=== PATIENT | female | born 1975 | race Caucasian/White ===

== ENCOUNTER 2022-04-27 06:01 | Day surgery (SDC) | payer BC, MEDICARE ==
[2022-04-27] MEDS ORDERED: Lactated Ringers 1,000 ML IV SCH (06:30)
[2022-04-27] MEDS ORDERED: DIPRIVAN 200 MG/20 ML IV ONE ×2 (07:43→08:00)
[2022-04-27] MEDS ORDERED: XYLOCAINE 2%/Epi 1:200000 20ML VIAL MPF ONE (07:43)
[2022-04-27] MEDS ORDERED: Xylocaine-Mpf 2% 5 Ml Vial ONE (07:44)
[2022-04-27] MEDS ORDERED: Versed 2 MG/2 ML Injection ONE (07:47)
[2022-04-27 08:51] VITALS: BP 139/92; PULSE 103; O2SAT 100
--- NOTE | 2022-04-27 09:51 | OP ---
SURGERY DATE/TIME: 04/27/2022 0748 PREOPERATIVE DIAGNOSIS: History of colon polyps and rectal bleeding. POSTOPERATIVE DIAGNOSIS: Small transverse colon polyp otherwise normal colon. PROCEDURE: Colonoscopy with cold forceps biopsy. SURGEON: Dr. Dank Moreau. ANESTHESIA: MAC. Medications given by anesthesia department. HISTORY: The patient is a 46-year-old white female who reports that 13 years ago she had a colonoscopy where multiple polyps were removed. At that time she had the procedure because she was having rectal bleeding and reports that she currently is having bleeding once again and has not had colonoscopy in the interval 13 years. The patient was felt the need to have a endoscopic evaluation. She was appraised of the risks of the procedure including the risk of perforation, phlebitis, untoward reaction to medication, bleeding and missed lesions. The patient verbalized her understanding and desired to have the procedure performed. DESCRIPTION OF PROCEDURE: The patient was given the medications by the anesthesia department. She had continuous pulse oximetry, ECG monitoring, intermittent blood pressure monitoring during the examination. She was placed in the left lateral decubitus position. A digital rectal examination was performed and revealed normal anal sphincter tone and no masses. The flexible Olympus pediatric colonoscope was used to intubate the rectum. A view of the colon was developed sequentially to the cecum including a short distance into the terminal ileum. Upon insertion and withdrawal, including a retroflex view in the rectum was noted one small polyp in the transverse colon which was destroyed using two passes of cold forceps biopsy. The scope was removed from the patient who tolerated the procedure well and was sent back to OP recovery in good condition. The prep was noted to be fair to good.
== END 2022-04-27 09:00 | disposition home or self-care (01) ==
LOC: SDC 06:01
PROVIDERS: ATTEND Family Medicine
DX: Z09 Encounter for follow-up examination after completed treatment for conditions other than malignant neoplasm (principal); Z86.010 Personal history of colon polyps; Z87.19 Personal history of other diseases of the digestive system; D12.3 Benign neoplasm of transverse colon
CPT/HCPCS: J2250; J2704

== ENCOUNTER 2022-05-27 16:59 | Emergency (ER) | payer BC, MEDICARE ==
[2022-05-27 19:11] LABS: Absolute Neutrophil Ct (ANC) 4.12 x10^3/uL (1.4-6.9); Basophil (Absolute #) 0.04 x10^3/uL (0-0.4); Eosinophil % 3.5 % (0.00-5.0); Eosinophil (Absolute #) 0.27 x10^3/uL (0-0.5); Hemoglobin 14.4 g/dL (12.0-16.0); Lymphocyte (Absolute #) 2.81 x10^3/uL (1.0-4.6); Lymphocytes % 36.8 % (24.0-44.0); Mean Cell Volume 97.1 fL (78-100); Mean Corpuscular Hemoglobin 31.8 pg (26-32); Mean Corpuscular Hgb Concent. 32.7 g/dL (32-36); Mean Platelet Volume 10.8 fL (7.5-11.0); Monocyte (Absolute #) 0.39 x10^3/uL (0.0-1.3); Monocytes % 5.1 % (0.0-12.0); Platelet Count 297 x10^3/uL (150-450); Red Blood Count 4.53 x10^6/uL (4.1-5.4); Red Cell Distribution Width 13.3 % (11.5-14.0); White Blood Count 7.6 x10^3/uL (4.0-10.5)
--- NOTE | 2022-05-27 19:14 | ERPHSYRPT ---
- History of Present Illness Source: patient, other () Exam Limitations: other (Poor historian) Patient Subjective Stated Complaint: C/O Headache, body aches, SOB. Patient has been struggling with this for months but it is much worse today. Triage Nursing Assessment: Patient does not appear SOB upon arrival. Skin tone normal. Alert and oriented. Patient with eyes closes through most of assessment but is answering questions appropriately when spoken to. Physician History: 46 yo wf w [facility] x 2wks(2months per nursing). Pt states that the pain is a 10 on scale, global, and sharp. She has had N/V and movement/palpation makes the pain worse. She denies focal weakness/trauma/cough/fever. Pt also complains of generalized abdominal pain/edema which she states is due to an adrenal tumor which Dr. Smith states is benign and nonoperable. Pt does have migraine headaches, but she states this pain is different. Timing/Duration: other (2wks to 2 months) Quality: sharpness Head Pain Location: global Severity of Pain-Max: severe Severity of Pain-Current: severe Recent Head Trauma: occasional headaches Modifying Factors: Improves With: movement Associated Symptoms: facial pain, nausea/vomiting, trouble walking, No confusion, No dizziness, No fatigue, No fever/chills, No flushing, No light- headedness, No loss of consciousness, No nasal congestion, No nasal drainage, No neck pain, No numbness in legs/feet, No rash, No sweating, No scotoma, No seizures, No sinus infection, No sensitive to light, No speech problems, No stiff neck, No vision changes, No visual disturbance, No weakness Previous symptoms: same symptoms as today Allergies/Adverse Reactions: tramadol Allergy (Mild, Verified 05/27/22 17:01) site injection reaction hydromorphone HCl [From Dilaudid (PF)] Adverse Reaction (Verified 05/27/22 17:01) lowers b/p Home Medications: Lamictal 200 mg PO BID 12/30/11 [History] Topamax 100 MG 150 mg PO BID 12/30/11 [History] Alprazolam [Xanax] 1 mg PO TID 05/18/22 [History] Hx Tetanus, Diphtheria Vaccination/Date Given: Yes Hx Influenza Vaccination/Date Given: No Hx Pneumococcal Vaccination/Date Given: No Immunizations Up to Date: Yes Travel Risk - International Travel Have you traveled outside of the country in past 3 weeks: No - Coronavirus Screening Are you exhibiting any of the following symptoms?: Yes Symptoms: Headaches/Body Aches/Fatigue Close contact with a COVID-19 positive Pt in past 14-21 Days: No - Vaccine Status Have you recieved a Covid-19 vaccination: No - Review of Systems Constitutional: No Symptoms, Fatigue, Malaise Eyes: No Symptoms Ears, Nose, & Throat: No Symptoms Respiratory: No Symptoms Cardiac: No Symptoms Abdominal/Gastrointestinal: No Symptoms, Abdominal Pain, Nausea, Vomiting Genitourinary Symptoms: No Symptoms Musculoskeletal: No Symptoms Skin: No Symptoms Neurological: No Symptoms, Headache Psychological: No Symptoms Endocrine: No Symptoms Hematologic/Lymphatic: No Symptoms Immunological/Allergic: No Symptoms - Past Medical History Pertinent Past Medical History: Yes Neurological History: Migraines Respiratory History: No Pertinent History Musculoskeletal History: Arthritis GI Medical History: GERD Psycho-Social History: Anxiety, Depression Other Medical History: chronic lyme disease, adrenal gland tumor - Past Surgical History Past Surgical History: Yes Gastrointestinal: Cholecystectomy Other Surgical History: spinal surgx3, wisdom teeth - Social History Smoking Status: Current every day smoker How long have you smoked: 25 YEARS Exposure to second hand smoke: No Drug Use: none Patient Lives Alone: No Significant Family History: no pertinent family hx - Female History Hx Now: No - Nursing Vital Signs Nursing Vital Signs: Initial Vital Signs Temperature 98 F 05/27/22 17:03 O2 Sat by Pulse Oximetry 99 05/27/22 17:03 Pain Scale Pain Intensity 8 Afebrile/Good sats - Physical Exam General Appearance: no apparent distress, alert Eye Exam: PERRL/EOMI, eyes nml inspection Ears, Nose, Throat Exam: normal ENT inspection, TMs normal, pharynx normal, moist mucous membranes Neck Exam: normal inspection, non-tender, supple, full range of motion, No meningismus, No mass, No Brudzinski, No Kernig's, No carotid bruit Respiratory Exam: normal breath sounds, lungs clear, airway intact Cardiovascular Exam: regular rate/rhythm, normal heart sounds, normal peripheral pulses, capillary refill <2 sec, No murmur Gastrointestinal/Abdominal Exam: soft, normal bowel sounds, tenderness (Diffuse TTP) Extremity Exam: normal inspection, normal range of motion Mental Status Exam: alert, oriented x 3, 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 Exam: normal hearing, normal speech, PERRL Motor/Sensory Exam: no motor deficit, no sensory deficit DTR Exam: bicep (R): 2+, bicep (L): 2+ Skin Exam: normal color, warm, dry, No rash Lymphatic Exam: No adenopathy SpO2 Interpretation: normal SpO2: 99 O2 Delivery: Room Air - Course Nursing assessment & vital signs reviewed: Yes EKG Interpreted by Me: RATE (EKG/Sinus tach/Prolonged QTc/Low voltage/Flat Twaves) - CT Exams Head CT Interpretation: Discussed w/radiologist (CT head L maxillary sinus disease/Nothing acute) Abdomen/Pelvis CT Interpretation: Discussed w/radiologist (CT [id number] HH/Small R adren al adenoma/Nothing acute) Ordered Tests: Active Orders 24 hr Category Date Time Status ABDOMEN AND PELVIS W/0 CONTRAS [CT] Stat Exams 05/27/22 19:08 Taken HEAD WITHOUT CONTRAST [CT] Stat Exams 05/27/22 19:39 Taken AMYLASE Stat Lab 05/27/22 19:08 Completed CBC W DIFF Stat Lab 05/27/22 19:08 Completed CMP Stat Lab 05/27/22 19:08 Completed LIPASE Stat Lab 05/27/22 19:08 Completed Lactic Acid Stat Lab 05/27/22 19:06 Completed TROPONIN Q4H Lab 05/27/22 19:08 Completed TROPONIN Q4H Lab 05/27/22 23:15 Ordered UA W/RFX CULTURE Stat Lab 05/27/22 20:11 Completed Medication Summary Discontinued Medications Generic Name Dose Route Start Last Admin Trade Name Matt PRN Reason Stop Dose Admin Morphine Sulfate 4 mg 05/27/22 20:51 05/27/22 21:01 Morphine Sulfate 4 Mg/Ml Injection IV 05/27/22 20:52 4 mg STAT ONE Administration Morphine Sulfate Confirm 05/27/22 20:59 Morphine Sulfate 4 Mg/Ml Injection Administered 05/27/22 21:00 Dose 4 mg .ROUTE .STK-MED ONE Morphine Sulfate 4 mg 05/27/22 21:43 05/27/22 21:46 Morphine Sulfate 4 Mg/Ml Injection IV 05/27/22 21:44 4 mg STAT ONE Administration Morphine Sulfate Confirm 05/27/22 21:45 Morphine Sulfate 4 Mg/Ml Injection Administered 05/27/22 21:46 Dose 4 mg .ROUTE .STK-MED ONE Prochlorperazine Edisylate 10 mg 05/27/22 20:51 05/27/22 21:02 Prochlorperazine Edisylate 10 Mg/2 Ml Vial IV 05/27/22 20:52 10 mg STAT ONE Administration Prochlorperazine Edisylate Confirm 05/27/22 20:59 Prochlorperazine Edisylate 10 Mg/2 Ml Vial Administered 05/27/22 21:00 Dose 10 mg .ROUTE .[facility] ONE Lab/Rad Data: Laboratory Result Diagrams 05/27/22 19:08 05/27/22 19:08 Laboratory Results 05/27/22 05/27/22 05/27/22 Range/Units 20:11 19:08 19:08 WBC (4.0-10.5) x10^3/uL RBC (4.1-5.4) x10^6/uL Hgb (12.0-16.0) g/dL Hct (35-47) % MCV (78-100) fL MCH (26-32) pg MCHC (32-36) g/dL RDW (11.5-14.0) % Plt Count (150-450) x10^3/uL MPV (7.5-11.0) fL Gran % (36.0-66.0) % Immature Gran % (Auto) (0.00-0.4) % Nucleat RBC Rel Count (0.00-0.1) % Eos # (Auto) (0-0.5) x10^3/uL Immature Gran # (Auto) (0.00-0.03) x10^3u/L Absolute Lymphs (auto) (1.0-4.6) x10^3/uL Absolute Monos (auto) (0.0-1.3) x10^3/uL Absolute Nucleated RBC (0.00-0.01) x10^3u/L Lymphocytes % (24.0-44.0) % Monocytes % (0.0-12.0) % Eosinophils % (0.00-5.0) % Basophils % (0.0-0.4) % Absolute Granulocytes (1.4-6.9) x10^3/uL Basophils # (0-0.4) x10^3/uL Sodium 138 (137-145) mmol/L Potassium 3.6 (3.5-5.1) mmol/L Chloride 109 H (98-107) mmol/L Carbon Dioxide 19 L (22-30) mmol/L Anion Gap 14.1 (5-15) MEQ/L BUN 8 (7-17) mg/dL Creatinine 0.75 (0.52-1.04) mg/dL Estimated GFR > 60.0 ML/MIN Glucose 93 (74-106) mg/dL Lactic Acid (0.4-2.0) Calcium 9.0 (8.4-10.2) mg/dL Total Bilirubin 0.90 (0.2-1.3) mg/dL AST 39 H (14-36) U/L ALT 22 (0-35) U/L Alkaline Phosphatase 63 (38-126) U/L Troponin I < 0.012 (0.000-0.034) ng/mL Serum Total Protein 8.0 (6.3-8.2) g/dL Albumin 4.5 (3.5-5.0) g/dL Amylase 95 (30-110) U/L Lipase 259 (23-300) U/L Urinalys Dipstick Clnc MAIN LAB Urine Color YELLOW (YELLOW) Urine Appearance SLIGHTLY CLOUDY A (CLEAR) Urine pH 8.5 A (5-6) Ur Specific [place] 1.015 (1.005-1.025) POC Urine Protein Conf NEGATIVE (Negative) Urine Ketones SMALL-15 A (NEGATIVE) Urine Nitrite NEGATIVE (NEGATIVE) Urine Bilirubin NEGATIVE (NEGATIVE) Urine Urobilinogen 1 A (0-1) mg/dL Urine Leukocytes NEGATIVE (NEGATIVE) Urine WBC (Auto) NONE (0-5) /HPF Urine RBC (Auto) NONE (0-2) /HPF U Epithel Cells (Auto) RARE (FEW) /HPF Urine Bacteria (Auto) NONE (NEGATIVE) /HPF Urine RBC NEGATIVE (0-5) Tate/ul Ur Culture Indicated? NO Urine Glucose NEGATIVE (NEGATIVE) mg/dL 05/27/22 05/27/22 Range/Units 19:08 19:06 WBC 7.6 (4.0-10.5) x10^3/uL RBC 4.53 (4.1-5.4) x10^6/uL Hgb 14.4 (12.0-16.0) g/dL Hct 44.0 (35-47) % MCV 97.1 (78-100) fL MCH 31.8 (26-32) pg MCHC 32.7 (32-36) g/dL RDW 13.3 (11.5-14.0) % Plt Count 297 (150-450) x10^3/uL MPV 10.8 (7.5-11.0) fL Gran % 54.0 (36.0-66.0) % Immature Gran % (Auto) 0.1 (0.00-0.4) % Nucleat RBC Rel Count 0.0 (0.00-0.1) % Eos # (Auto) 0.27 (0-0.5) x10^3/uL Immature Gran # (Auto) 0.01 (0.00-0.03) x10^3u/L Absolute Lymphs (auto) 2.81 (1.0-4.6) x10^3/uL Absolute Monos (auto) 0.39 (0.0-1.3) x10^3/uL Absolute Nucleated RBC 0.00 (0.00-0.01) x10^3u/L Lymphocytes % 36.8 (24.0-44.0) % Monocytes % 5.1 (0.0-12.0) % Eosinophils % 3.5 (0.00-5.0) % Basophils % 0.5 (0.0-0.4) % Absolute Granulocytes 4.12 (1.4-6.9) x10^3/uL Basophils # 0.04 (0-0.4) x10^3/uL Sodium (137-145) mmol/L Potassium (3.5-5.1) mmol/L Chloride (98-107) mmol/L Carbon Dioxide (22-30) mmol/L Anion Gap (5-15) MEQ/L BUN (7-17) mg/dL Creatinine (0.52-1.04) mg/dL Estimated GFR ML/MIN Glucose (74-106) mg/dL Lactic Acid 1.7 (0.4-2.0) Calcium (8.4-10.2) mg/dL Total Bilirubin (0.2-1.3) mg/dL AST (14-36) U/L ALT (0-35) U/L Alkaline Phosphatase (38-126) U/L Troponin I (0.000-0.034) ng/mL Serum Total Protein (6.3-8.2) g/dL Albumin (3.5-5.0) g/dL Amylase (30-110) U/L Lipase (23-300) U/L Urinalys Dipstick Clnc Urine Color (YELLOW) Urine Appearance (CLEAR) Urine pH (5-6) Ur Specific [place] (1.005-1.025) POC Urine Protein Conf (Negative) Urine Ketones (NEGATIVE) Urine Nitrite (NEGATIVE) Urine Bilirubin (NEGATIVE) Urine Urobilinogen (0-1) mg/dL Urine Leukocytes (NEGATIVE) Urine WBC (Auto) (0-5) /HPF Urine RBC (Auto) (0-2) /HPF U Epithel Cells (Auto) (FEW) /HPF Urine Bacteria (Auto) (NEGATIVE) /HPF Urine RBC (0-5) Tate/ul Ur Culture Indicated? Urine Glucose (NEGATIVE) mg/dL - Progress Progress: improved Progress Note: 05/27/22 21:44 4mg IV Morphine/10mg IV Compazine w mild-moderate improvement in pain 4mg IV Morphine before discharge CT results reviewed w pt/ 05/27/22 22:23 Pt wo focal weakness/fever during ER stay Counseled pt/family regarding: lab results, diagnosis, need for follow-up, rad results - Departure Departure Disposition: Home Clinical Impression: Headache, Abdominal pain Condition: Stable Critical Care Time: No Referrals: KATIE BHANDARI [Primary Care Provider] - Follow up/PCP as directed Instructions: Severe Abdominal Pain, Adult (DC), Headache, Adult (DC) Additional Instructions: Follow up with your family MD Return to ER for increasing pain/focal weakness/Temperature greater than 100.5
[2022-05-27 19:18] LABS: ALBUMIN 4.5 g/dL (3.5-5.0); ALKALINE PHOSPHATASE 63 U/L (38-126); AMYLASE 95 U/L (30-110); ANION GAP 14.1 MEQ/L (5-15); BLOOD UREA NITROGEN 8 mg/dL (7-17); CHLORIDE 109 mmol/L (98-107); Carbon Dioxide 19 mmol/L (22-30); Creatinine 1 0.75 mg/dL (0.52-1.04); EST GLOMERULAR FILTRATION RATE > 60.0 ML/MIN; Glucose 93 mg/dL (74-106); LIPASE 259 U/L (23-300); Potassium 3.6 mmol/L (3.5-5.1); SGOT/AST 39 U/L (14-36); SGPT/ALT 22 U/L (0-35); SODIUM 138 mmol/L (137-145)
[2022-05-27 20:26] LABS: Appearance SLIGHTLY CLOUDY (CLEAR); Bilirubin NEGATIVE (NEGATIVE); Glucose NEGATIVE (NEGATIVE); Ketones SMALL-15 (NEGATIVE); RBC NEGATIVE Ery/ul (0-5); Specific Gravity 1.015 (1.005-1.025)
[2022-05-27 20:27] LABS: Dipstick done @ ? MAIN LAB; Nitrite NEGATIVE (NEGATIVE); Ph 8.5 (5-6); Protein,Urine Dip NEGATIVE (Negative); Urobilinogen 1 mg/dL (0-1)
[2022-05-27 20:44] LABS: Epithelial Cells RARE /HPF (FEW)
[2022-05-27] MEDS ORDERED: Compazine 10 MG/2 ML IV ONE (20:51)
[2022-05-27] MEDS ORDERED: MORPHINE SULFATE 4 MG INJ IV ONE ×2 (20:51→21:43)
[2022-05-27 20:58] LABS: Urine Cultured Indicated? NO
[2022-05-27] MEDS ORDERED: Compazine 10 MG/2 ML ONE (20:59)
[2022-05-27] MEDS ORDERED: MORPHINE SULFATE 4 MG INJ ONE ×2 (20:59→21:45)
[2022-05-27 21:24] VITALS: BP 132/81; PULSE 79
[2022-05-27 21:47] VITALS: O2SAT 99
--- NOTE | 2022-05-28 08:43 | XRAY ---
Indication: Migraine headache 3 days. Multiple contiguous axial images obtained through the head without contrast. Comparison: None Normal appearing brain parenchyma, ventricles, and bony calvarium. Left maxillary sinus fluid leveling. Remaining visualized paranasal sinuses and mastoid air cells are clear. Impression: Left maxillary sinus disease. Remaining CT head without contrast exam is normal.
--- NOTE | 2022-05-28 08:45 | XRAY ---
Indication: Abdomen pain, nausea, vomiting, and diarrhea 3 days. Multiple contiguous axial images obtained through the abdomen and pelvis without contrast. Comparison: April 07, 2022 Lung bases are clear. Heart not enlarged. Stable small hiatal hernia. Noncontrasted stomach and bowel loops nonobstructed again with normal appendix. Again incidental small right adrenal adenoma and cholecystectomy. No free fluid/air. Remaining liver, pancreas, spleen, adrenal glands, kidneys, ureters, bladder, uterus, and aorta are unremarkable for noncontrast exam. Osseous structures intact again with lumbosacral junction laminectomy and fusion hardware. Impression: 1. Stable small hiatal hernia, right adrenal adenoma, and lumbosacral junction surgery. 2. Remaining CT abdomen/pelvis without contrast exam is negative.
== END 2022-05-27 22:01 | disposition home or self-care (01) ==
LOC: ED 16:59
DX: R51.9 Headache, unspecified (principal); R10.84 Generalized abdominal pain; R11.2 Nausea with vomiting, unspecified; Z72.0 Tobacco use; Z79.899 Other long term (current) drug therapy; Z28.310 Unvaccinated for COVID-19
CPT/HCPCS: 36415; 70450; 74176; 80053; 81015; 82150; 83605; 83690; 84484; 85025; 96374; 96375; 96376; 99284; J2270

== ENCOUNTER 2022-06-10 06:53 | Day surgery (SDC) | payer BC, MEDICARE ==
--- NOTE | 2022-05-25 09:54 | HP ---
DATE OF SURGERY: 05/27/2022 HISTORY OF PRESENT ILLNESS: The patient is a 46-year-old female initially presented with right adrenal gland adenoma. The patient reports that she had severe pain in her back for a couple of months. She states this is hurting all of the time. She has no appetite. She complains of nausea and vomiting. She is up-to-date on her colonoscopy this was just done a few weeks ago and she had polyps. She complains of weight gain, constipation and back pain, nausea, vomiting and loss of appetite. Her CT scan otherwise was unremarkable. We have since ordered a three month follow up on the CT scan for the adenoma. We will proceed with EGD on the patient. PAST MEDICAL HISTORY: Headaches, back pain, heartburn. PAST SURGICAL HISTORY: Tonsillectomy. Tubal ligation. Cervical spine surgery. Laparoscopic cholecystectomy. [place] tooth. ALLERGIES: DILAUDID. TORADOL. MEDICATIONS: Topamax. FAMILY HISTORY: None reported. SOCIAL HISTORY: Heavy smoking, occasional alcohol. REVIEW OF SYSTEMS: CONSTITUTIONAL: Denies fever or chills. CHEST: Denies shortness of breath. CVS: Denies chest pain. ABDOMEN: Reports epigastric pain, nausea, vomiting, constipation, loss of appetite. PHYSICAL EXAMINATION: GENERAL: No acute distress. CHEST: Nonlabored. No shortness of breath. CVS: Regular rate and rhythm. ABDOMEN: Soft. IMPRESSION: Epigastric pain, nausea, vomiting, loss of appetite. PLAN: EGD with Dr. Arun Smith. As dictated by Jacklyn Gutierrez NP.
--- NOTE | 2022-06-04 08:57 | HP ---
DATE OF SURGERY: 06/10/2022 HISTORY OF PRESENT ILLNESS: The patient is a 46-year-old female who initially presented to us with incidental right adrenal gland adenoma. The adenoma appears pretty friendly and small at this point. We are planning a three month repeat CT scan on that. She presented to the office complaining of some weight gain and some constipation and some pain in her upper abdomen and left upper quadrant. She is complaining of some nausea and vomiting at times. She has not been evaluated for endoscopy any time recent. She does have a history of laparoscopic cholecystectomy. The patient is up to date on her colonoscopy and was done just a few weeks ago. PAST MEDICAL HISTORY: Reflux. PAST SURGICAL HISTORY: Cholecystectomy. [place] teeth. Cervical spine. Tubal ligation. Tonsillectomy. ALLERGIES: TRAMADOL. DILAUDID. MEDICATIONS: Topamax, Lamictal, Xanax. FAMILY HISTORY: None reported. SOCIAL HISTORY: Heavy smoker, occasional alcohol. REVIEW OF SYSTEMS: CONSTITUTIONAL: Denies fever or chills. CHEST: Denies shortness of breath. CVS: Denies chest pain. ABDOMEN: Reports epigastric pain, nausea and vomiting. PHYSICAL EXAMINATION: GENERAL: No acute distress. CHEST: Nonlabored. No shortness of breath. CVS: Regular rate and rhythm. ABDOMEN: Soft. IMPRESSION: Epigastric pain, nausea and vomiting. PLAN: EGD with Dr. Arun Smith. As dictated by Jacklyn Gutierrez NP.
[2022-06-10] MEDS ORDERED: Lactated Ringers 1,000 ML IV SCH (07:30)
[2022-06-10] MEDS ORDERED: Lactated Ringers 1,000 ML IV ONE (07:42)
[2022-06-10] MEDS ORDERED: Versed 2 MG/2 ML Injection IV PRN (08:45)
[2022-06-10] MEDS ORDERED: Versed 2 MG/2 ML Injection ONE ×2 (09:37→10:01)
[2022-06-10] MEDS ORDERED: Xylocaine-Mpf 2% 5 Ml Vial ONE (10:45)
[2022-06-10] MEDS ORDERED: DIPRIVAN 200 MG/20 ML IV ONE (10:45)
--- NOTE | 2022-06-10 11:11 | OP ---
SURGERY DATE/TIME: 06/10/2022 1045 PREOPERATIVE DIAGNOSIS: Epigastric pain, left upper quadrant pain, nausea and vomiting. POSTOPERATIVE DIAGNOSES: 1) A 1 inch hiatal hernia. 2) Grade 2 over 4 gastroesophageal reflux disease. 3) Duodenitis. PROCEDURES: 1) EGD with cold biopsy of gastroesophageal junction. 2) Cold biopsy of antrum. 3) Cold biopsy of duodenum. SURGEON: Arun Smith M.D. PEER SPECIALIST: Juan Carlos Bess, Medical Student III. ANESTHESIA: MAC. COMPLICATIONS: None. CONDITION: Stable. INDICATION: A patient with the above symptoms. DESCRIPTION OF PROCEDURE: Taken to endoscopy. Left lateral decubitus position. Scope introduced. Pharyngoesophageal junction there was grade 2 over 4 irritation. There was a 1 inch hiatal hernia. Fundus, body, antrum basically looked normal. Just a little distortion right side of the pylorus but it was old and there was nothing new. There was mild duodenitis. Software Validation Engineer biopsy of the antrum obtained. Second portion normal. The scope withdrawn looped upon itself. No additional findings. Scope withdrawn. The patient tolerated the procedure satisfactorily.
[2022-06-10 11:46] VITALS: BP 136/78; PULSE 56; O2SAT 99
== END 2022-06-10 11:55 | disposition home or self-care (01) ==
LOC: SDC 06:53
PROVIDERS: ATTEND Surgery
DX: K44.9 Diaphragmatic hernia without obstruction or gangrene (principal); K21.9 Gastro-esophageal reflux disease without esophagitis; K29.80 Duodenitis without bleeding; R10.13 Epigastric pain; R10.12 Left upper quadrant pain; R11.2 Nausea with vomiting, unspecified
CPT/HCPCS: 81025; J2250; J2704

== ENCOUNTER 2023-08-14 17:06 | Emergency (ER) | payer BC, MEDICARE ==
--- NOTE | 2023-08-14 17:20 | ERPHSYRPT ---
- History of Present Illness Time Seen by Provider: 08/14/23 17:20 Source: patient, family Exam Limitations: no limitations Physician History: pt has vaginal bleeding x 1 month. BUt pain is much worse today and there are Hx of ovarian cysts so torsion is a concern - pain and tenderness greater on right. Discussed risks/benefit with pt and and they wish CBC, CMP, US pelvic, HCG, IVF, Ativan, Amylase. Lactate, UA, Lipase is independent source for Hx in ER. Timing/Duration: week(s) Activites at Onset: none Quality: sharpness, stabbing, throbbing Onset Location: RLQ Severity of Pain-Max: moderate Severity of Pain-Current: moderate Prior abdominal problems: none Sexual intercourse history: non-contributory Modifying Factors: Improves With: nothing Associated Symptoms: abdominal pain Allergies/Adverse Reactions: tramadol Allergy (Mild, Verified 08/14/23 17:27) site injection reaction hydromorphone HCl [From Dilaudid (PF)] Adverse Reaction (Mild, Verified 08/14/23 22:46) lowers b/p Home Medications: ALPRAZolam 1 MG [Xanax 1 mg] 1 tab PO TID 08/14/23 [History] Lamotrigine [Lamotrigine ER] 1 tab PO BID 08/14/23 [History] Omeprazole 1 tab PO DAILY 08/14/23 [History] Topiramate 150 mg PO BID 08/14/23 [History] Hx Tetanus, Diphtheria Vaccination/Date Given: Yes Hx Influenza Vaccination/Date Given: No Hx Pneumococcal Vaccination/Date Given: No Travel Risk - Vaccine Status Have you recieved a Covid-19 vaccination: No - Review of Systems Constitutional: No Fever, No Chills Eyes: No Symptoms Ears, Nose, & Throat: No Symptoms Respiratory: No Cough, No Dyspnea Cardiac: No Chest Pain, No Edema, No Syncope Abdominal/Gastrointestinal: Abdominal Pain, Nausea, No Vomiting, No Diarrhea Genitourinary Symptoms: No Dysuria Musculoskeletal: No Back Pain, No Neck Pain Skin: No Rash Neurological: No Dizziness, No Focal Weakness, No Sensory Changes Psychological: No Symptoms Endocrine: No Symptoms Hematologic/Lymphatic: No Symptoms Immunological/Allergic: No Symptoms All Other Systems: Reviewed and Negative - Past Medical History Pertinent Past Medical History: Yes Neurological History: Migraines ENT History: No Pertinent History Cardiac History: No Pertinent History Respiratory History: No Pertinent History Endocrine Medical History: No Pertinent History Musculoskeletal History: Arthritis GI Medical History: GERD History: Other Psycho-Social History: Anxiety, Bipolar, Depression Female Reproductive Disorders: Menstrual Problems Other Medical History: chronic lyme disease, adrenal gland tumor - Past Surgical History Past Surgical History: Yes Neuro Surgical History: No Pertinent History Cardiac: No Pertinent History Respiratory: No Pertinent History Gastrointestinal: Cholecystectomy Female Surgical History: Tubal Ligation Other Surgical History: spinal surg x 4, wisdom teeth - Social History Smoking Status: Current every day smoker How long have you smoked: 20 yrs Exposure to second hand smoke: No Drug Use: none Patient Lives Alone: No Significant Family History: no pertinent family hx - Nursing Vital Signs Nursing Vital Signs: Initial Vital Signs Temperature 98 F 08/14/23 17:31 Pulse Rate 67 08/14/23 17:31 Respiratory Rate 13 08/14/23 17:31 Blood Pressure 126/57 08/14/23 17:31 O2 Sat by Pulse Oximetry 99 08/14/23 17:31 Pain Scale Pain Intensity 7 - Physical Exam General Appearance: no apparent distress, alert Eye Exam: PERRL/EOMI, eyes nml inspection Ears, Nose, Throat Exam: normal ENT inspection, TMs normal, pharynx normal, moist mucous membranes Neck Exam: normal inspection, non-tender, supple, full range of motion Respiratory Exam: normal breath sounds, lungs clear, No respiratory distress Cardiovascular Exam: regular rate/rhythm, normal heart sounds, normal peripheral pulses Gastrointestinal/Abdomen Exam: soft, No tenderness, No mass Pelvic Exam: deferred Rectal Exam: deferred Back Exam: normal inspection, normal range of motion, No CVA tenderness, No vertebral tenderness Extremity Exam: normal inspection, normal range of motion, pelvis stable Neurologic Exam: alert, oriented x 3, cooperative, slide attendant II-XII nml as tested, normal mood/affect, sensation nml, No motor deficits Skin Exam: normal color, warm, dry Lymphatic Exam: No adenopathy SpO2 Interpretation: normal SpO2: 99 O2 Delivery: Room Air - Course Nursing assessment & vital signs reviewed: Yes - CT Exams Abdomen/Pelvis CT Interpretation: Tele-radiologist Report, No appendicitis (adrenal cysts) - Radiology Ultrasound Exam Pelvis Ultrasound: discussed w/radiologist, negative, No Mass, No Torsion/Nml Flow Ordered Tests: Active Orders 24 hr Category Date Time Status IV Insertion STAT Care 08/14/23 19:00 Active ABDOMEN AND PELVIS W/0 CONTRAS [CT] Stat Exams 08/14/23 20:55 Completed PELVIC [US] Routine Exams 08/14/23 18:46 Taken AMYLASE Stat Lab 08/14/23 19:25 Completed CBC W DIFF Stat Lab 08/14/23 19:25 Completed CMP Stat Lab 08/14/23 19:25 Completed CULTURE,URINE Stat Lab 08/14/23 19:01 Received HCG QUALITATIVE, SERUM Stat Lab 08/14/23 19:25 Completed LIPASE Stat Lab 08/14/23 19:25 Completed Lactic Acid Stat Lab 08/14/23 19:00 Completed UA W/RFX UR CULTURE Stat Lab 08/14/23 19:01 Completed Medication Summary Discontinued Medications Generic Name Dose Route Start Last Admin Trade Name Freq PRN Reason Stop Dose Admin Diphenhydramine HCl 25 mg 08/14/23 20:23 08/14/23 20:28 Diphenhydramine Hcl 50 Mg/Ml Vial IV 08/14/23 20:24 25 mg STAT ONE Administration Diphenhydramine HCl Confirm 08/14/23 20:27 Diphenhydramine Hcl 50 Mg/Ml Vial Administered 08/14/23 20:28 Dose 50 mg .ROUTE .STK-MED ONE Droperidol 0.625 mg 08/14/23 19:48 08/14/23 19:52 Droperidol 5 Mg/2 Ml Vial IV 08/14/23 19:49 0.625 mg STAT ONE Administration Droperidol Confirm 08/14/23 19:51 Droperidol 5 Mg/2 Ml Vial Administered 08/14/23 19:52 Dose 5 mg .ROUTE .STK-MED ONE Droperidol 0.625 mg 08/14/23 20:23 08/14/23 20:29 Droperidol 5 Mg/2 Ml Vial IV 08/14/23 20:24 0.625 mg STAT ONE Administration Droperidol Confirm 08/14/23 20:27 Droperidol 5 Mg/2 Ml Vial Administered 08/14/23 20:28 Dose 5 mg .ROUTE .STK-MED ONE Famotidine 20 mg 08/14/23 19:00 08/14/23 19:23 Famotidine 20 Mg/1 Vial IV 08/14/23 19:01 20 mg STAT ONE Administration Famotidine Confirm 08/14/23 19:21 Famotidine 20 Mg/1 Vial Administered 08/14/23 19:22 Dose 20 mg IV .STK-MED ONE Sodium Chloride 1,000 mls @ 999 mls/hr 08/14/23 19:00 08/14/23 20:37 Sodium Chloride 0.9% 1000 Ml IV 08/14/23 20:00 Infused .Q1H1M STA Infusion Sodium Chloride Confirm 08/14/23 19:21 Sodium Chloride 0.9% 1000 Ml Administered 08/14/23 19:22 Dose 1,000 mls @ ud .ROUTE .STK-MED ONE Lorazepam 1 mg 08/14/23 19:02 08/14/23 19:18 Lorazepam 1 Mg Tablet PO 08/14/23 19:03 1 mg STAT ONE Administration Lorazepam Confirm 08/14/23 19:17 Lorazepam 1 Mg Tablet Administered 08/14/23 19:18 Dose 1 mg .ROUTE .STK-MED ONE Ondansetron HCl 4 mg 08/14/23 19:00 08/14/23 19:23 Ondansetron Hcl 4 Mg/2 Ml Vial IV 08/14/23 19:01 4 mg STAT ONE Administration Ondansetron HCl Confirm 08/14/23 19:21 Ondansetron Hcl 4 Mg/2 Ml Vial Administered 08/14/23 19:22 Dose 4 mg .ROUTE .STK-MED ONE Oxycodone/Acetaminophen 1 tab 08/14/23 22:50 08/14/23 22:56 Oxycodone / Apap 10/325 Mg 1 Tablet PO 08/14/23 22:51 1 tab STAT STA Administration Oxycodone/Acetaminophen Confirm 08/14/23 22:54 Oxycodone / Apap 10/325 Mg 1 Tablet Administered 08/14/23 22:55 Dose 1 tab .ROUTE .STK-MED ONE Lab/Rad Data: Laboratory Result Diagrams 08/14/23 19:25 08/14/23 19:25 Laboratory Results 08/14/23 08/14/23 08/14/23 Range/Units 19:25 19:25 19:25 WBC 7.6 (4.0-10.5) x10^3/uL RBC 4.14 (4.1-5.4) x10^6/uL Hgb 13.1 (12.0-16.0) g/dL Hct 41.1 (35-47) % MCV 99.3 (78-100) fL MCH 31.6 (26-32) pg MCHC 31.9 L (32-36) g/dL RDW 13.5 (11.5-14.0) % Plt Count 220 (150-450) x10^3/uL MPV 10.7 (7.5-11.0) fL Gran % 52.5 (36.0-66.0) % Immature Gran % (Auto) 0.3 (0.00-0.4) % Nucleat RBC Rel Count 0.0 (0.00-0.1) % Eos # (Auto) 0.24 (0-0.5) x10^3/uL Immature Gran # (Auto) 0.02 (0.00-0.03) x10^3u/L Absolute Lymphs (auto) 2.86 (1.0-4.6) x10^3/uL Absolute Monos (auto) 0.45 (0.0-1.3) x10^3/uL Absolute Nucleated RBC 0.00 (0.00-0.01) x10^3u/L Lymphocytes % 37.7 (24.0-44.0) % Monocytes % 5.9 (0.0-12.0) % Eosinophils % 3.2 (0.00-5.0) % Basophils % 0.4 (0.0-0.4) % Absolute Granulocytes 3.99 (1.4-6.9) x10^3/uL Basophils # 0.03 (0-0.4) x10^3/uL Sodium 139 (137-145) mmol/L Potassium 4.0 (3.5-5.1) mmol/L Chloride 111 H (98-107) mmol/L Carbon Dioxide 21 L (22-30) mmol/L Anion Gap 10.7 (5-15) MEQ/L BUN 9 (7-17) mg/dL Creatinine 0.83 (0.52-1.04) mg/dL Estimated GFR 86.9 ML/MIN Glucose 77 (74-106) mg/dL Lactic Acid (0.4-2.0) Calcium 9.5 (8.4-10.2) mg/dL Total Bilirubin 0.50 (0.2-1.3) mg/dL AST 25 (14-36) U/L ALT 52 H (0-35) U/L Alkaline Phosphatase 54 (38-126) U/L Serum Total Protein 7.1 (6.3-8.2) g/dL Albumin 4.1 (3.5-5.0) g/dL Amylase 63 (30-110) U/L Lipase 121 (23-300) U/L Serum HCG, Qual NEGATIVE (NEGATIVE) Urine Color (Yellow) Urine Appearance (Clear) Urine pH (4.6-8.0) Ur Specific Lily (1.005-1.030) Urine Protein (Negative) Urine Glucose (UA) (Negative) mg/dL Urine Ketones (Negative) Urine Blood (Negative) Urine Nitrite (Negative) Urine Bilirubin (Negative) Urine Urobilinogen (0.2) mg/dL Ur Leukocyte Esterase (Negative) U Hyaline Cast (Auto) (0-2) /LPF Urine Microscopic RBC (0-5) /HPF Urine Microscopic WBC (0-5) /HPF Ur Epithelial Cells (None Seen) /HPF Urine Bacteria (None Seen) /HPF Urine Culture Reflexed (NO) 08/14/23 08/14/23 Range/Units 19:01 19:00 WBC (4.0-10.5) x10^3/uL RBC (4.1-5.4) x10^6/uL Hgb (12.0-16.0) g/dL Hct (35-47) % MCV (78-100) fL MCH (26-32) pg MCHC (32-36) g/dL RDW (11.5-14.0) % Plt Count (150-450) x10^3/uL MPV (7.5-11.0) fL Gran % (36.0-66.0) % Immature Gran % (Auto) (0.00-0.4) % Nucleat RBC Rel Count (0.00-0.1) % Eos # (Auto) (0-0.5) x10^3/uL Immature Gran # (Auto) (0.00-0.03) x10^3u/L Absolute Lymphs (auto) (1.0-4.6) x10^3/uL Absolute Monos (auto) (0.0-1.3) x10^3/uL Absolute Nucleated RBC (0.00-0.01) x10^3u/L Lymphocytes % (24.0-44.0) % Monocytes % (0.0-12.0) % Eosinophils % (0.00-5.0) % Basophils % (0.0-0.4) % Absolute Granulocytes (1.4-6.9) x10^3/uL Basophils # (0-0.4) x10^3/uL Sodium (137-145) mmol/L Potassium (3.5-5.1) mmol/L Chloride (98-107) mmol/L Carbon Dioxide (22-30) mmol/L Anion Gap (5-15) MEQ/L BUN (7-17) mg/dL Creatinine (0.52-1.04) mg/dL Estimated GFR ML/MIN Glucose (74-106) mg/dL Lactic Acid 1.0 (0.4-2.0) Calcium (8.4-10.2) mg/dL Total Bilirubin (0.2-1.3) mg/dL AST (14-36) U/L ALT (0-35) U/L Alkaline Phosphatase (38-126) U/L Serum Total Protein (6.3-8.2) g/dL Albumin (3.5-5.0) g/dL Amylase (30-110) U/L Lipase (23-300) U/L Serum HCG, Qual (NEGATIVE) Urine Color Red A (Yellow) Urine Appearance Cloudy A (Clear) Urine pH 5.5 (4.6-8.0) Ur Specific Lily 1.015 (1.005-1.030) Urine Protein 30 (Negative) Urine Glucose (UA) Negative (Negative) mg/dL Urine Ketones Trace A (Negative) Urine Blood Large A (Negative) Urine Nitrite Negative (Negative) Urine Bilirubin Small A (Negative) Urine Urobilinogen 0.2 (0.2) mg/dL Ur Leukocyte Esterase Small A (Negative) U Hyaline Cast (Auto) NONE SEEN (0-2) /LPF Urine Microscopic RBC >100 A (0-5) /HPF Urine Microscopic WBC 3-5 (0-5) /HPF Ur Epithelial Cells None Seen (None Seen) /HPF Urine Bacteria None Seen (None Seen) /HPF Urine Culture Reflexed YES (NO) - Progress Progress: improved, re-examined Air Movement: good Progress Note: 08/14/23 22:[address] Fuller for OB /[employer] advice and we will place pt on 14 days of 10 mg provera and then have f/u with them for further Tx. discussed risks/benefits with pt and spouse and they wish to proceed. 08/14/23 22:46 the pt relates that she is able to take dilaudid and is not allergic , but just has to watch because her BP caqme down with it once - discussed risks/benefits and she would like to try oxycodone which she has taken with no problems before. Blood Culture(s) Obtained: No Antibiotics given: No Counseled pt/family regarding: lab results, diagnosis, need for follow-up, rad results Medical Desision Making - Independent Historian Additional History obtained from: Spouse - Discussion of managment Reviewed:: Test results, Need for additional workup Agreed on:: Treatment plan, need for follow-up - Diagnostic Testing Diagnostic test were ordered, analyzed, and reviewed by me: Yes Radiological Interpretation: Reviewed by me - Risk of complications The pt has a mod risk of morbidity or mortality based on: Need for prescription drug management The pt has a high risk of morbidity or mortality based on: Decision regarding hospitilization or escalation of hosp level of care - Departure Departure Disposition: Home Clinical Impression: Vaginal bleeding Condition: Good Critical Care Time: No Referrals: KATIE BHANDARI [ACTIVE STAFF] - Follow up/PCP as directed Instructions: Heavy Periods (DC), Menstrual Cramps (DC) Additional Instructions: followup with Dr. Fuller [employer] office this week. we do not know the precise cause for your symptoms and this further evaluation is important. in the meantime the estrogen therapy will eventually improve the symptoms, but that follow-up is important to rule out additional pathology and determine the underlying cause. followup with your Dr. also for the adrenal cysts/nodules. Prescriptions: Medroxyprogesterone Acet [[id number] mg] 10 mg PO DAILY #14 tablet
[2023-08-14 17:47] VITALS: TEMP 98
[2023-08-14] MEDS ORDERED: Zofran 4 MG/2 ML VIAL IV ONE (19:00)
[2023-08-14] MEDS ORDERED: Pepcid 20 MG VIAL IV ONE ×2 (19:00→19:21)
[2023-08-14] MEDS ORDERED: Sodium Chloride 0.9% 1000 ML 1,000 ML IV STA (19:00)
[2023-08-14] MEDS ORDERED: Ativan 1 MG PO ONE (19:02)
[2023-08-14] MEDS ORDERED: Ativan 1 MG ONE (19:17)
[2023-08-14] MEDS ORDERED: Sodium Chloride 0.9% 1000 ML 1,000 ML ONE (19:21)
[2023-08-14] MEDS ORDERED: Zofran 4 MG/2 ML VIAL ONE (19:21)
[2023-08-14 19:28] LABS: Absolute Neutrophil Ct (ANC) 3.99 x10^3/uL (1.4-6.9); BASOPHIL % 0.4 % (0.0-0.4); Basophil (Absolute #) 0.03 x10^3/uL (0-0.4); Eosinophil % 3.2 % (0.00-5.0); Eosinophil (Absolute #) 0.24 x10^3/uL (0-0.5); Hematocrit 41.1 % (35-47); Hemoglobin 13.1 g/dL (12.0-16.0); IMMATURE GRAN # 0.02 x10^3u/L (0.00-0.03); IMMATURE GRAN % 0.3 % (0.00-0.4); Lymphocyte (Absolute #) 2.86 x10^3/uL (1.0-4.6); Lymphocytes % 37.7 % (24.0-44.0); Mean Cell Volume 99.3 fL (78-100); Mean Corpuscular Hemoglobin 31.6 pg (26-32); Mean Corpuscular Hgb Concent. 31.9 g/dL (32-36); Mean Platelet Volume 10.7 fL (7.5-11.0); Monocyte (Absolute #) 0.45 x10^3/uL (0.0-1.3); Monocytes % 5.9 % (0.0-12.0); Neutrophil % 52.5 % (36.0-66.0); Platelet Count 220 x10^3/uL (150-450); Red Blood Count 4.14 x10^6/uL (4.1-5.4); Red Cell Distribution Width 13.5 % (11.5-14.0); White Blood Count 7.6 x10^3/uL (4.0-10.5)
[2023-08-14 19:44] LABS: ALBUMIN 4.1 g/dL (3.5-5.0); ANION GAP 10.7 MEQ/L (5-15); BILIRUBIN,TOTAL 0.5 mg/dL (0.2-1.3); Calcium 9.5 mg/dL (8.4-10.2); Creatinine 1 0.83 mg/dL (0.52-1.04); EST GLOMERULAR FILTRATION RATE 86.9 ML/MIN; HCG SERUM TEST NEGATIVE (NEGATIVE); Total Protein 7.1 g/dL (6.3-8.2)
[2023-08-14 20:17] LABS: Appearance Cloudy (Clear); Bacteria None Seen /HPF (None Seen); Bilirubin Small (Negative); Blood Large (Negative); Epithelial Cells None Seen /HPF (None Seen); Glucose, Urine Negative (Negative); Hyaline Casts NONE SEEN /LPF (0-2); Ketones Trace (Negative); Leukocyte Esterase Small (Negative); Nitrite Negative (Negative); Ph 5.5 (4.6-8.0); Protein,Urine Dip 30 (Negative); RBC >100 /HPF (0-5); Specific Gravity 1.015 (1.005-1.030); Urobilinogen 0.2 mg/dL (0.2)
[2023-08-14 20:18] LABS: ADD URINE CULTURE? YES (NO)
[2023-08-14] MEDS ORDERED: BENADRYL 50 MG/ML IV ONE (20:23)
[2023-08-14] MEDS ORDERED: BENADRYL 50 MG/ML ONE (20:27)
--- NOTE | 2023-08-14 22:02 | XRAY ---
CLINICAL HISTORY:abd pain and tenderness COMPARISON:CT dated 05/27/2022. TECHNIQUE:CT scan of the abdomen and pelvis was performed without IV contrast.Coronal and sagittal reconstructive images were also obtained. FINDINGS: Sections of lower thorax show subtle subpleural ground-glass opacities in posterior aspect of lower lobes with a thin atelectatic band in left lower lobe. Abdomen: The liver is of average size. No focal or diffuse parenchymal abnormality. The intrahepatic biliary radicals and the bile ducts are normal. The gallbladder is surgically removed. An ovoid hypodense nodule is seen in the medial limb of the right adrenal gland measuring 1.7 x 2.0 cm. A 0.8 cm round hypodense nodule is also seen in the left adrenal gland. The spleen and pancreas are unremarkable. The kidneys are normal in size and shape. No calculi or hydronephrosis. The ascending colon, the transverse colon, the descending colon, visualized small bowel loops are unremarkable. Appendix appears normal in caliber and shows few tiny appendicoliths within it. No inflammatory changes noted in right iliac fossa region. There is no evidence of significant enlargement of the mesenteric or retroperitoneal lymph nodes. The abdominal aorta shows mild atherosclerotic changes Pelvis: The urinary bladder is unremarkable. The rectosigmoid colon is unremarkable. The uterus and adnexa appears unremarkable. No evidence of pelvic lymphadenopathy. Post lumbar spinal fixation at L5-S1 level. IMPRESSION: 1. Bilateral adrenal gland nodules. Suggest contrast-enhanced CT with adrenal protocol for further evaluation if clinically warranted. 2. No significant interval changes since previous study. Electronically Signed by: Bob Mcdonough MD. (08/14/2023 21:59:04 EST)
[2023-08-14 22:20] VITALS: O2SAT 99
[2023-08-14] MEDS ORDERED: OXYCODONE-ACETAMINOPHEN 10-325 PO STA (22:50)
[2023-08-14] MEDS ORDERED: OXYCODONE-ACETAMINOPHEN 10-325 ONE (22:54)
[2023-08-14 23:15] VITALS: BP 122/68; PULSE 71; RESP 16
--- NOTE | 2023-08-15 08:45 | XRAY ---
Indication: Pelvic pain. Ovarian torsion. Two-dimensional transabdominal pelvic sonogram performed. Comparison: None Urinary bladder not adequately distended producing suboptimal acoustic window. Uterus anteverted measuring 9.9 x 4.5 x 2.1 cm. No focal solid/cystic uterine mass. Endometrial stripe measures 1.1 cm. No endometrial cavity mass or fluid collection. Right ovary measures 3.0 x 1.9 x 2.4 cm and left measures 2.0 x 1.0 x 1.8 cm. Normal perfusion bilaterally. No suspicious adnexal mass or free fluid. Impression: Negative transabdominal pelvic sonogram. Patient refused transvaginal sonogram. Comment: Preliminary report was given.
== END 2023-08-14 23:35 | disposition home or self-care (01) ==
LOC: ED 17:06
DX: N93.9 Abnormal uterine and vaginal bleeding, unspecified (principal); R10.2 Pelvic and perineal pain; Z79.899 Other long term (current) drug therapy; Z28.310 Unvaccinated for COVID-19; Z72.0 Tobacco use
CPT/HCPCS: 36000; 36415; 74176; 76856; 80053; 81001; 82150; 83605; 83690; 84703; 85025; 87086; 96374; 96375; 96376; 99285; J1200; J2405; A9270-GY